=== PATIENT | male | born 1960 | race Hispanic/Latino ===

== ENCOUNTER 2017-07-26 11:26 | Inpatient (IN) | payer OTHER ==
[~2017-07-26] VITALS: Ht 165.1 cm; Wt 86.2 kg
--- NOTE | 2017-07-26 12:23 | Diagnostic Imaging Report ---
PROCEDURE:X-RAY RIGHT FOOT, COMPLETE COMPARISON:None. INDICATIONS:5TH DIGIT INFECTION FINDINGS: Normal mineralization. No acute displaced fracture or dislocation. Mild cortex irregularity in the medial distal aspect of the distal phalanx of the fifth toe. Rest of the bony structures are no cortical erosion or destruction. No lytic or blastic lesion. Soft tissue swelling is dorsal aspect of the foot, as well as the fifth toe CONCLUSION: 1. Mild cortex irregularity in the medial distal aspect of the distal phalanx of the fifth toe worrisome for osteomyelitis in the setting of infection. Belrtan Mosqueda M.D. Dictated by: Beltran Mosqueda M.D. on 07/26/2017 at 12:22 Electronically approved by: Beltran Mosqueda M.D. on 07/26/2017 at 12:22
[2017-07-26 12:28] LABS: BASOPHILS # (AUTO) 0.1 (0.0-0.1); BASOPHILS % 0.3 % (0.0-1.0); EOSINOPHILS % 0.1 % (0.0-6.0); HEMATOCRIT 38.7 % (38.2-49.6); HEMOGLOBIN 13.4 g/dL (14.0-18.0); LYMPHOCYTES # (AUTO) 1.5 (1.0-3.2); LYMPHOCYTES % 9.2 % (18.0-39.1); MEAN CORPUSCULAR HEMOGLOBIN 29.2 pg (28-32); MEAN CORPUSCULAR HGB CONC 34.6 g/dL (31-35); MEAN CORPUSCULAR VOLUME 84.3 fL (81-99); MONOCYTES % 6.1 % (4.4-11.3); NEUTROPHILS # (AUTO) 13.2 (2.1-6.9); NEUTROPHILS % 83.9 % (38.7-80.0); PLATELET COUNT 247 x10e3/uL (140-360); RED BLOOD COUNT 4.59 x10e6/uL (4.3-5.7); RED CELL DISTRIBUTION WIDTH 11.9 % (11.7-14.4)
[2017-07-26 12:44] LABS: INR 1.1; PARTIAL THROMBOPLASTIN TIME 30.5 seconds (23.8-35.5); PROTHROMBIN TIME 13.4 seconds (11.9-14.5)
[2017-07-26 12:50] LABS: ALANINE AMINOTRANSFERASE 22 IU/L (0-55); ALBUMIN 3.7 g/dL (3.5-5.0); ALBUMIN/GLOBULIN RATIO 0.8 (0.8-2.0); ALKALINE PHOSPHATASE 108 IU/L (40-150); ANION GAP 17.3 mmol/L (8-16); BLOOD UREA NITROGEN 17 mg/dL (7-26); BUN/CREATININE RATIO 17 (6-25); CALCIUM 9.6 mg/dL (8.4-10.2); CARBON DIOXIDE 28 mmol/L (22-29); CHLORIDE 97 mmol/L (98-107); CREATININE, SERUM 0.98 mg/dL (0.72-1.25); EST GLOMERULAR FILTRATION RATE > 60 ML/MIN (60-); GLUCOSE 197 mg/dL (74-118); POTASSIUM 4.3 mmol/L (3.5-5.1); SODIUM 138 mmol/L (136-145)
[2017-07-26] MEDS ORDERED: VANCOMYCIN 1GM/NS 250 ML 250 ML IV ONE (13:15)
[2017-07-26 13:22] LABS: CHOL/HDL RATIO 2.8 (3.9-4.7)
[2017-07-26] MEDS ORDERED: SODIUM CHLORIDE FLUSH 10 ML SYR INJ PRN (14:00)
[2017-07-26] MEDS ORDERED: ONDANSETRON HCL INJ 2 MG/ML VIAL IV PRN (14:00)
--- OUTSIDE RECORDS SUMMARY | 2017-07-26 14:45 | XMS REPORT ---
Author Author [facility] Address Unknown Phone Unavailable Care Team Providers Care Test Borer Name Role Phone JABIER HORNE Unavailable Unavailable Problems This patient has no known problems. Allergies, Adverse Reactions, Alerts This patient has no known allergies or adverse reactions. Medications This patient has no known medications. Results Test Description Test Time Test Comments Text Results Atomic Results Result Comments FOOT RIGHT COMPLETE [place] [id number] Patient Name: COLLEEN STARR MR #: [id number] : 1960 Age/Sex: 57/M Req # : [id number] Adm Physician: Ordered by: JABIER HORNE MD Report #: [id number] Location: ER Room/Bed: Procedure: [id number] DX/FOOT RIGHT COMPLETE Exam Date: 07/26/17 Exam Time: 1200 REPORT STATUS: Signed PROCEDURE: X-RAY RIGHT FOOT, COMPLETE COMPARISON: None. INDICATIONS: 5TH DIGIT INFECTION FINDINGS: Normal mineralization. No acute displaced fracture or dislocation. Mild cortex irregularity in the medial distal aspect of the distal phalanx of the fifth toe. Rest of the bony structures are no cortical erosion or destruction. No lytic or blastic lesion. Soft tissue swelling is dorsal aspect of the foot, as well as the fifth toe CONCLUSION: 1. Mild cortex irregularity in the medial distal aspect of the distal phalanx of the fifth toe worrisome for osteomyelitis in the setting of infection. Janessa Mosqueda M.D. Dictated by: Janessa Mosqueda M.D. on 07/26/2017 at 12:22 Electronically approved by: Janessa Mosqueda M.D. on 07/26/2017 at 12:22 Dictated By: JANESSA MOSQUEDA MD [id number] Transcribed By: TIFFANIE on 07/26/17 1222 COPY TO: JABIER HORNE MD
[2017-07-26] MEDS ORDERED: MORPHINE SULFATE 2 MG/ML SYR IV PRN (15:00)
[2017-07-26 16:26] VITALS: BP 156/74
[2017-07-26] MEDS ORDERED: SODIUM CHLORIDE 0.9% 250ML 250 ML ONE (16:52)
[2017-07-26] MEDS ORDERED: DEXTROSE 50% SYRINGE 50 ML IV PRN (17:00)
[2017-07-26] MEDS: MEROPENEM 500MG 500 MG in SODIUM CHLORIDE 0.9% 50ML 50 ML IV SCH (17:06)
[2017-07-26] MEDS: VANCOMYCIN 1GM/NS 250 ML 250 ML IV SCH (17:06)
--- NOTE | 2017-07-26 17:09 | Consultation ---
DATE OF CONSULTATION: July 26, 2017 REASON FOR CONSULTATION: Infection of his right foot. HISTORY OF PRESENT ILLNESS: This patient is a 57-year-old male with history of diabetes mellitus. He was having a problem with his foot for more than a month. He comes in with redness and swelling of his foot. The patient came to the emergency room where he was admitted. The patient denies any history of trauma, but he does have history of diabetes, hypertension. PAST SURGICAL HISTORY: He denies. ALLERGIES: NKA. SOCIAL HISTORY: Does not smoke, no drug abuse or alcohol abuse. FAMILY HISTORY: Diabetes mellitus. LABORATORY DATA: White count 15.7, hemoglobin 13.4, sodium 130, potassium 4.3, creatinine 0.98. PHYSICAL EXAMINATION: GENERAL: He is currently alert and oriented and does not seem to be in acute distress. VITALS: Stable, currently afebrile. HEENT: Not icteric. NECK: Supple. CHEST: Clear. COR: No murmur. ABDOMEN: Soft. Obese, no tenderness, no hepatosplenomegaly. EXTREMITIES: On his right foot, there is erythema and edema. IMPRESSION AND PLAN: Infection of the foot. There are ischemic changes of the 5th toe, probably early necrosis. Will need probably amputation. Concern about osteomyelitis. Peripheral vascular disease. Will put him on vancomycin 1 gram IV piggyback q.12 hours. Will also put him on meropenem 500 q.8. The patient is allergic to penicillin. Podiatry consultation. Obtain a sed rate and C-reactive protein. Will follow with you. Job#: [id number]
--- NOTE | 2017-07-26 17:28 | History and Physical ---
CHIEF COMPLAINT: He presented to the emergency room today when he noted that his right 5th toe was swelling and turning dark. HISTORY OF PRESENT ILLNESS: Mr. 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 The patient tells me in a rapid speech that his old shoes were fitting kind of tightly. He did not notice any injury, but when he noted that his toe was becoming red, he "took the old shoes and threw them in the trash". PAST MEDICAL HISTORY: Significant for type 2 adult onset diabetes. He reports that he takes medications and checks blood sugars. He tells me his blood sugars have been higher since his mother a couple of weeks ago. He cannot tell me the names of his medications. Denies any previous surgeries or hospitalizations. PERSONAL/SOCIAL HISTORY: Does not smoke or drink. REVIEW OF SYSTEMS: Generally negative. He reports he is active and works hard. PHYSICAL EXAMINATION: GENERAL: Shows a pleasant, man who is comfortable. VITAL SIGNS: Temperature 99 degrees, blood pressure 135/77. Pulse 75. HEENT: Unremarkable. NECK: No jugular venous distention. No bruits. CARDIOVASCULAR: Heart sounds S1 and S2 are equal. No murmur. LUNGS: Clear. ABDOMEN: Protuberant. Normal bowel sounds. EXTREMITIES: Have no cyanosis, clubbing or edema. The right 5th toe is swollen, reddish and dusky in coloration. LABORATORY: Studies show white count 15.7, hemoglobin 13.4. Current glucose 197. BUN and creatinine normal. His hemoglobin A1C is 12.4. Lipid profile shows cholesterol 172, HDL 61, LDL 94. X-ray of the foot suggests possibility of osteomyelitis in the 5th toe. ASSESSMENT: 1. Cellulitis and diabetic foot with possible osteomyelitis. 2. Uncontrolled diabetes. PLAN: He is started on broad-spectrum antibiotic coverage and will check arterial Doppler scan of the legs. Will provide sliding scale insulin. Ask for infectious disease and endocrine consultations. Further management based on clinical course. Job#: [id number] GH cc:KIYA CHRISTINA MD cc:NANCY GUZMAN MD cc:JAMIE PERSAUD MD
[2017-07-26 18:25] VITALS: BP 156/74
[2017-07-26 20:30] VITALS: BP 129/72
--- NOTE | 2017-07-26 20:37 | Diagnostic Imaging Report ---
A single frontal view of the chest. HISTORY: Diabetes, cellulitis COMPARISON: None available. DISCUSSION: Portable technique, limits sensitivity of the exam. Metallic density projects over the mid thorax. Tubes/Lines: None Lungs and pleura: The lungs appear well inflated. No evidence of a consolidative pneumonia or pulmonary alveolar edema. No definite pleural effusion or pneumothorax is identified. Heart and mediastinum: The cardiomediastinal silhouette appears unremarkable. Bones: No acute osseous lesion is identified, given this limited exam. IMPRESSION: No acute radiographic abnormality. Signed by: Dr. Bernard Osorio D.O., M.M.M. on 07/26/2017 8:33 PM
[2017-07-26] MEDS: INSULIN REGULAR, HUMAN 100 UNIT/1 ML 3ML VIAL SQ SCH (22:45)
[2017-07-26] MEDS ORDERED: OMEPRAZOLE40 MG (23:38)
[2017-07-26] MEDS ORDERED: VASOTEC5 MG PO (23:38)
[2017-07-26] MEDS ORDERED: DOCUSATE SODIU100 MG PO (23:38)
[2017-07-26] MEDS ORDERED: METFORMIN HCL500 MG PO (23:38)
[2017-07-26] MEDS ORDERED: PIOGLITAZONE HC45 MG PO (23:38)
[2017-07-26] MEDS ORDERED: LOVASTATIN20 MG PO (23:38)
[2017-07-26] MEDS ORDERED: FARXIGA (23:38)
[2017-07-27] VITALS (7 sets, daily range): BP systolic 127–152; BP diastolic 67–79
[2017-07-27] MEDS: MEROPENEM 500MG 500 MG in SODIUM CHLORIDE 0.9% 50ML 50 ML IV SCH ×4 (00:10→18:15)
[2017-07-27 07:07] LABS: BASOPHILS % 0.3 % (0.0-1.0); EOSINOPHILS % 0.2 % (0.0-6.0); HEMATOCRIT 36.2 % (38.2-49.6); HEMOGLOBIN 12.4 g/dL (14.0-18.0); LYMPHOCYTES # (AUTO) 1.3 (1.0-3.2); LYMPHOCYTES % 9.9 % (18.0-39.1); MEAN CORPUSCULAR HEMOGLOBIN 29.7 pg (28-32); MEAN CORPUSCULAR HGB CONC 34.3 g/dL (31-35); MEAN CORPUSCULAR VOLUME 86.8 fL (81-99); MONOCYTES # (AUTO) 0.8 (0.2-0.8); MONOCYTES % 5.9 % (4.4-11.3); NEUTROPHILS # (AUTO) 11.2 (2.1-6.9); NEUTROPHILS % 83.1 % (38.7-80.0); PLATELET COUNT 251 x10e3/uL (140-360); RED BLOOD COUNT 4.17 x10e6/uL (4.3-5.7); RED CELL DISTRIBUTION WIDTH 11.7 % (11.7-14.4)
[2017-07-27 07:23] LABS: BLOOD UREA NITROGEN 16 mg/dL (7-26); BUN/CREATININE RATIO 19 (6-25); CALCIUM 8.9 mg/dL (8.4-10.2); CARBON DIOXIDE 23 mmol/L (22-29); CHLORIDE 98 mmol/L (98-107); CREATININE, SERUM 0.85 mg/dL (0.72-1.25); EST GLOMERULAR FILTRATION RATE > 60 ML/MIN (60-); GLUCOSE 141 mg/dL (74-118); SODIUM 135 mmol/L (136-145)
[2017-07-27] MEDS: INSULIN REGULAR, HUMAN 100 UNIT/1 ML 3ML VIAL SQ SCH ×4 (07:25→21:00)
--- NOTE | 2017-07-27 10:30 | Diagnostic Imaging Report ---
PROCEDURE: A single AP view of the chest. COMPARISON: None. INDICATIONS: PICC LINE PLACEMENT FINDINGS: Lines/tubes: Right peripherally inserted central venous catheter with tip projecting over the expected region of the superior vena cava. Lungs: The lungs are well inflated and clear. There is no evidence of pneumonia or pulmonary edema. Pleura: There is no pleural effusion or pneumothorax. Heart and mediastinum: The heart and the mediastinum are unremarkable. Bones: No acute bony abnormality. IMPRESSION: No acute radiographic abnormality. Dictated by: Dwight Wallace M.D. on 07/27/2017 at 10:30 Electronically approved by: Dwight Wallace M.D. on 07/27/2017 at 10:30
[2017-07-27 14:18] LABS: FREE T4 (FREE THYROXINE) 1.21 ng/dL (0.9-1.8); THYROID STIMULATING HORMONE 1.202 uIU/mL (0.350-4.940)
--- NOTE | 2017-07-27 14:56 | Consultation ---
DATE OF CONSULTATION: July 27, 2017 ENDOCRINE CONSULTATION This is a patient of Dr. Wellington. Thank you very much for referring this patient. HISTORY OF PRESENT ILLNESS: This is a 57-year-old gentleman who is referred to me for evaluation of uncontrolled diabetes mellitus. Patient reportedly is a known diabetic for almost 3 years. Most of the history is available from the patient's relatives. Patient is Citizen Of The [place]-speaking only. He is a known diabetic for almost 3 years and is under the care of Dr. Parrish. He has been started on several hypoglycemics including glyburide and metformin. He was also on Actos in the past and recently has been started on the Farxiga. Patient came to the hospital with the history of cellulitis of the right foot with impending gangrene and possible osteomyelitis of the 5th toe on the right side. He also has history of hypertension and is on several other medications at home. During the hospital stay, his blood sugars were significantly elevated at 258, and his hemoglobin A1c is 12.4. PHYSICAL EXAMINATION: GENERAL: Today the patient is alert, awake, a little bit apprehensive. VITAL SIGNS: His heart rate is around 78. Blood pressure 148/86 mmHg. HEENT: Examination essentially unremarkable. Thyroid is palpable. Clinically he is near euthyroid. CHEST: Bilateral vesicular breathing. He has mild bronchospasm. CARDIAC: Both 1st and 2nd heart sounds. There is no 3rd or 4th heart sound. Ejection sound grade 2/6. EXTREMITIES: Patient has redness and swelling of the right foot with a blister and discoloration of the 5th toe on the right side. CLINICAL IMPRESSION: 1. Diabetes mellitus type 2, uncontrolled with complications. 2. Cellulitis of the right foot with possible osteomyelitis of the 5th toe. The plan at this time is to do the labs and also put him on the combination of the Levemir and the Humalog insulin. Will just hold his Farxiga and other oral hypoglycemics for now. Thanks for referring this patient. I will be following this patient with you. Job#: [id number] EV MTDAvelina
[2017-07-27] MEDS: VANCOMYCIN 1GM/NS 250 ML 250 ML IV SCH (16:50)
[2017-07-28] VITALS (7 sets, daily range): BP systolic 136–184; BP diastolic 68–88
[2017-07-28] MEDS: MEROPENEM 500MG 500 MG in SODIUM CHLORIDE 0.9% 50ML 50 ML IV SCH ×4 (00:30→17:40)
[2017-07-28] MEDS: INSULIN REGULAR, HUMAN 100 UNIT/1 ML 3ML VIAL SQ SCH ×4 (07:20→21:30)
[2017-07-28] MEDS ORDERED: INSULIN DETEMIR 100 UNIT/ML PEN SQ SCH (09:00)
[2017-07-28] MEDS: ENALAPRIL MALEATE 5 MG TAB PO SCH (12:30)
[2017-07-28] MEDS: INSULIN LISPRO 100 UNIT/1 ML 3ML VIAL SQ SCH (16:15)
[2017-07-28] MEDS: VANCOMYCIN 1GM/NS 250 ML 250 ML IV SCH (16:45)
[2017-07-28] MEDS ORDERED: PROMETHAZINE HCL 25 MG TAB PO PRN (23:30)
[2017-07-29] VITALS (8 sets, daily range): BP systolic 115–151; BP diastolic 66–80
[2017-07-29] MEDS: MEROPENEM 500MG 500 MG in SODIUM CHLORIDE 0.9% 50ML 50 ML IV SCH ×4 (00:10→17:35)
[2017-07-29] MEDS: ACETAMINOPHEN 325 MG TAB PO PRN ×2 (00:10→22:02)
[2017-07-29] MEDS: INSULIN LISPRO 100 UNIT/1 ML 3ML VIAL SQ SCH ×3 (07:30→16:30)
[2017-07-29] MEDS: INSULIN REGULAR, HUMAN 100 UNIT/1 ML 3ML VIAL SQ SCH ×4 (07:30→22:00)
[2017-07-29] MEDS ORDERED: INSULIN DETEMIR 100 UNIT/ML PEN SQ SCH (09:00)
[2017-07-29] MEDS: ENALAPRIL MALEATE 5 MG TAB PO SCH (09:10)
[2017-07-29] MEDS: VANCOMYCIN HCL 1.25 GM in SODIUM CHLORIDE 0.9% 250ML 300 ML IV SCH ×2 (11:05→22:01)
--- NOTE | 2017-07-29 15:04 | Consultation ---
DATE OF CONSULTATION: July 29, 2017 PODIATRY CONSULT CHIEF COMPLAINT AND HISTORY OF CHIEF COMPLAINT: Mr. Pereira is a most pleasant 57-year-old male who was admitted to the hospital with an infected right foot. He speaks Togolese only, and the history was obtained from the chart and from the nurse who served as a site safety coordinator. Patient states that approximately a month ago he wore a tight shoe and noticed a blister on his right 5th toe. The blister proceeded to infection and worsening until he admitted to the hospital here several days ago. He has since been on IV antibiotics and medical management for diabetes and infection in the right foot. PREVIOUS MEDICAL HISTORY: Does indeed include the diabetes as well as hypertension. The patient denies any form of trauma to his foot other than that which was described by the tight shoe. PREVIOUS SURGICAL HISTORY: He denies surgery. ALLERGIES: HE DENIES ALLERGIES. SOCIAL HISTORY: The patient does not smoke or use alcohol or drugs. FAMILY HISTORY: Includes diabetes. LABS ON ADMISSION: Include an elevated white count at 15.7. PHYSICAL EVALUATION GENERAL: Patient states in general he does not have pain other than occasionally at night. LOWER EXTREMITY VASCULAR STATUS: The patient has nonpalpable pedal pulses secondary to edema on the right. They are palpable on the left. Capillary refill is within normal limits on the hallux and 2nd digit on the right foot. NEUROLOGICALLY: The patient has a loss of protective sensation as evidenced by [place] monofilament testing. DERMATOLOGICALLY: There is an intense erythema with cellulitis to the entire dorsal lateral aspect of the right foot including the 4th and 5th digits. This extends to an area just proximal to the right ankle. There is an ulceration interdigitally between the 4th and 5th digits with foul-smelling exudate and a bulbous discoloration and darkening of the right 5th digit. MUSCULOSKELETAL: Shows a rectus foot with probable osteomyelitis to the 5th digit. No other imaging has been performed at this point. These results and recommended therapeutic plan which included amputation of the 5th digit and bone debridement were discussed with the patient in detail. Through the field auto appraiser, the patient stated that he would prefer to avoid amputation and loss of the digit if at all possible. MRI was ordered in order to determine the full extent of the infection and if the osteomyelitis already extends past the metatarsophalangeal joint of the right or possibly involves the 4th digit. Pending the outcome of the MRI, further recommendations will be made. In the interim, will continue with IV antibiotics and local wound care. A cleansing of the foot with an application of Betadine wet-to-dry will help to dry the area and control the foul odor. I will be leaving to go out of town after today for 1 week; therefore, will sign this patient out to Dr. Trina Styles. Further determination and discussion with regards to the appropriate procedure will be made by Dr. Styles as deemed appropriate. Thank you very much, Dr. Wellington, for asking me to see this most pleasant patient and participate in his care. Job#: [id number] DARBY
--- NOTE | 2017-07-29 16:49 | Diagnostic Imaging Report ---
TECHNIQUE: Magnetic resonance imaging of the RIGHT foot (forefoot) was performed WITHOUT injected contrast. HISTORY: Diabetic foot, ulcer fifth right toe, red, swollen, cellulitis COMPARISON: Radiographs of the right foot July 26, 2017 DISCUSSION: Bone: Subtle erosive changes, edema, decreased fatty marrow and probable areas of sclerosis involving the phalanges of the fifth digit. Most notably involving the medial aspect of the distal phalanx, middle phalanx, and lateral aspect of the head of the proximal phalanx. Incidentally, linear oriented edema within the cuboid bone, with subtle corresponding linear hypointensity. Joints: Nonspecific effusions of the interphalangeal joints. A trace nonspecific effusion of the fifth metatarsophalangeal joint. Soft Tissues: Soft tissue defect of the fifth toe. Regional confluent fluid signal intensity and punctate signal voids likely reflecting small air foci. Moderate diffuse soft tissue edema. IMPRESSION: 1. Osteomyelitis involving the fifth distal phalanx, middle phalanx, and distal aspect of the proximal phalanx. Acute on chronic osteomyelitis is a consideration. Associated fifth digit interphalangeal septic arthropathy is probable. 2. Prominent regional cellulitis. 3. Stress-related changes versus evolving insufficiency fracture of the cuboid bone. Signed by: Dr. Bernard Osorio D.O., M.M.M. on 07/29/2017 4:46 PM
[2017-07-29] MEDS ORDERED: SODIUM CHLORIDE 0.9% 250ML 250 ML ONE (23:42)
[2017-07-30] VITALS (9 sets, daily range): BP systolic 115–149; BP diastolic 57–81
[2017-07-30] MEDS: ZOLPIDEM TARTRATE 5 MG TAB PO PRN ×2 (00:20→21:28)
[2017-07-30] MEDS: MEROPENEM 500MG 500 MG in SODIUM CHLORIDE 0.9% 50ML 50 ML IV SCH ×4 (00:40→17:23)
[2017-07-30] MEDS: INSULIN LISPRO 100 UNIT/1 ML 3ML VIAL SQ SCH ×3 (07:30→16:30)
[2017-07-30] MEDS: INSULIN REGULAR, HUMAN 100 UNIT/1 ML 3ML VIAL SQ SCH ×4 (07:30→21:28)
[2017-07-30] MEDS: ENALAPRIL MALEATE 5 MG TAB PO SCH (08:01)
[2017-07-30] MEDS: ACETAMINOPHEN 325 MG TAB PO PRN ×2 (08:01→17:58)
[2017-07-30 08:37] LABS: BASOPHILS # (AUTO) 0.1 (0.0-0.1); BASOPHILS % 0.6 % (0.0-1.0); EOSINOPHILS # (AUTO) 0.1 (0.0-0.4); EOSINOPHILS % 1.2 % (0.0-6.0); HEMATOCRIT 36.7 % (38.2-49.6); HEMOGLOBIN 12.3 g/dL (14.0-18.0); LYMPHOCYTES # (AUTO) 1.9 (1.0-3.2); LYMPHOCYTES % 18.2 % (18.0-39.1); MEAN CORPUSCULAR HEMOGLOBIN 29.2 pg (28-32); MEAN CORPUSCULAR HGB CONC 33.5 g/dL (31-35); MEAN CORPUSCULAR VOLUME 87.2 fL (81-99); MONOCYTES # (AUTO) 0.7 (0.2-0.8); MONOCYTES % 6.6 % (4.4-11.3); NEUTROPHILS # (AUTO) 7.7 (2.1-6.9); NEUTROPHILS % 72.8 % (38.7-80.0); PLATELET COUNT 242 x10e3/uL (140-360); RED BLOOD COUNT 4.21 x10e6/uL (4.3-5.7); RED CELL DISTRIBUTION WIDTH 11.7 % (11.7-14.4)
[2017-07-30 08:51] LABS: ANION GAP 14.8 mmol/L (8-16); BLOOD UREA NITROGEN 12 mg/dL (7-26); BUN/CREATININE RATIO 16 (6-25); CARBON DIOXIDE 23 mmol/L (22-29); CHLORIDE 100 mmol/L (98-107); CREATININE, SERUM 0.77 mg/dL (0.72-1.25); EST GLOMERULAR FILTRATION RATE > 60 ML/MIN (60-); GLUCOSE 221 mg/dL (74-118); POTASSIUM 3.8 mmol/L (3.5-5.1); SODIUM 134 mmol/L (136-145)
[2017-07-30] MEDS ORDERED: INSULIN DETEMIR 100 UNIT/ML PEN SQ SCH (09:00)
[2017-07-30] MEDS: VANCOMYCIN HCL 1.25 GM in SODIUM CHLORIDE 0.9% 250ML 300 ML IV SCH ×2 (10:43→21:28)
[2017-07-31] VITALS (9 sets, daily range): BP systolic 121–145; BP diastolic 64–80
[2017-07-31] MEDS: MEROPENEM 500MG 500 MG in SODIUM CHLORIDE 0.9% 50ML 50 ML IV SCH ×5 (06:00→17:14)
[2017-07-31] MEDS: INSULIN REGULAR, HUMAN 100 UNIT/1 ML 3ML VIAL SQ SCH ×4 (07:30→20:32)
[2017-07-31] MEDS: INSULIN LISPRO 100 UNIT/1 ML 3ML VIAL SQ SCH ×3 (07:30→16:30)
[2017-07-31] MEDS: ENALAPRIL MALEATE 5 MG TAB PO SCH (08:35)
[2017-07-31] MEDS ORDERED: INSULIN DETEMIR 100 UNIT/ML PEN SQ SCH (09:00)
[2017-07-31] MEDS: VANCOMYCIN HCL 1.25 GM in SODIUM CHLORIDE 0.9% 250ML 300 ML IV SCH ×2 (10:24→21:29)
[2017-07-31] MEDS: ACETAMINOPHEN 325 MG TAB PO PRN (10:35)
--- NOTE | 2017-07-31 14:28 | Progress Note ---
DATE: July 31, 2017 Patient was seen at bedside. He is in good spirits. Family was also at bedside. Denies any nausea, vomiting, fever or chills. OBJECTIVE: There is an abscess with erythema and edema extending to around the ankle joint. It begins at the intermetatarsal space on the 4th. The 5th digit is gangrenous. There is purulence. There is malodor. There is no streaking erythema and no ascending lymphangitis. It ends right after the mid foot right to the subtalar joint. Pedal pulses are palpable. Capillary refill intact but still delayed. Skin is tense, dry, and atrophic. Intrinsic minus type of foot. Muscle mass symmetrical. MRI is positive for osteomyelitis. The white blood count is trending down. ASSESSMENT 1. Diabetic foot ulcer, grade 3. 2. Osteomyelitis, 5th metatarsal digit and proximal phalanx on the 4th. 3. Neuropathy. PLAN: At this point, I discussed with the patient the importance of controlling his blood sugar. He does see his PCP as outpatient, but he says was not controlling his blood sugars well. He developed this ulcer 2 weeks ago. He started IV antibiotic. It is beginning to respond and is trending down. At this point, he is going to need incision and drainage with debridement of the area. I am going to schedule him for possible Tuesday time broker. He is aware that towards the end of this week or the beginning of next week, he will need more definitive surgery. I suspect he is probably going to need an amputation of the 5th and possibly the 4th, and he is aware of this. First, the incision and drainage. I will wait for everything to demarcate. Then the more definitive surgery. I will continue to follow. He will be n.p.o. after midnight on Tuesday night. He will be vice president consulting services to OR on Tuesday. Job#: [id number]
[2017-08-01] VITALS: BP 122/74
[2017-08-01 04:00] VITALS: BP 129/76
[2017-08-01] MEDS: MEROPENEM 500MG 500 MG in SODIUM CHLORIDE 0.9% 50ML 50 ML IV SCH ×4 (06:04→12:48)
[2017-08-01] MEDS: INSULIN LISPRO 100 UNIT/1 ML 3ML VIAL SQ SCH ×3 (07:30→16:30)
[2017-08-01] MEDS: INSULIN REGULAR, HUMAN 100 UNIT/1 ML 3ML VIAL SQ SCH ×4 (07:30→20:47)
[2017-08-01 07:53] VITALS: BP 109/78
[2017-08-01] MEDS: ENALAPRIL MALEATE 5 MG TAB PO SCH (08:52)
[2017-08-01] MEDS: INSULIN DETEMIR 100 UNIT/ML PEN SQ SCH (08:53)
[2017-08-01] MEDS: VANCOMYCIN HCL 1.25 GM in SODIUM CHLORIDE 0.9% 250ML 300 ML IV SCH ×2 (11:00→22:21)
[2017-08-01 16:10] VITALS: BP 140/98
[2017-08-01] MEDS: MEROPENEM 500 MG VIAL IV SCH (17:20)
[2017-08-01 20:00] VITALS: BP 140/76
[2017-08-02] VITALS (8 sets, daily range): BP systolic 115–156; BP diastolic 56–89
[2017-08-02] MEDS: MEROPENEM 500 MG VIAL IV SCH ×5 (00:15→23:45)
[2017-08-02] MEDS ORDERED: VANCOMYCIN HCL 1 GM VIAL ONE (07:13)
[2017-08-02] MEDS ORDERED: BUPIVACAINE HCL 0.5% INJ 30 ML VIAL INJ ONE (07:13)
[2017-08-02] MEDS ORDERED: BACITRACIN 50,000 UNIT VIAL ONE (07:14)
[2017-08-02] MEDS ORDERED: FENTANYL CITRATE/PF 100MCG/2 ML INJ ONE ×2 (09:00→17:49)
--- NOTE | 2017-08-02 09:10 | Operative Report ---
DATE OF PROCEDURE: August 02, 2017 PREOPERATIVE DIAGNOSIS: Abscess with osteomyelitis on the right 5th digit and 4th intermetatarsal space. POSTOPERATIVE DIAGNOSIS: Abscess with osteomyelitis on the right 5th digit and 4th intermetatarsal space. PROCEDURES 1. Debridement of the abscess down to the bone. 2. Debridement of nonviable bone of the 5th. 3. Application of antibiotic bone beads. INJECTABLES: None. TOURNIQUET: None. COMPLICATIONS: None. PATHOLOGY: Culture and sensitivity sent for pathology. ANESTHESIA: General anesthetic. PROCEDURE IN DETAIL: Under mild sedation, the patient was brought to the operating room and placed on the operating table in the supine position. Following IV sedation, anesthesia was obtained with a general anesthetic. At this point, the right foot was scrubbed, prepped and draped in the usual aseptic manner. It was then lowered to the table. Attention was directed to the dorsal aspect of the right foot at the 4th intermetatarsal space where the abscess was and the ulcer. An incision was made down to the level of the bone. All nonviable tissue was debrided with a 15 blade and bone rongeur down to clean, viable granular tissue. Culture and sensitivity was taken of the abscess. It was then sent for pathology. The area was then flushed with a pulse roofing plant supervisor. At this point, the 5th digit was debrided down to the bone. At this point, it was noted that all the bone was osteomyelitic with mild odor, soft, nonviable. All of this was removed. The 5th digit was articulated down into the MPJ. After everything was irrigated with copious amount of irrigation with Bacitracin, bone beads were inserted into the area. Retention sutures were used with 4-0 nylon. A dressing was applied consisting of Betadine wet-to-dry, 4 x 4's, Kerlix, and an Kevin bandage. The patient tolerated the procedure and anesthesia well without complications. Was transported to the recovery room with vital signs stable and vascular status intact. The patient will be readmitted back into the hospital. He is going to have a more definitive surgery late this week or early next week. At this point, all the nonviable tissue was removed. I am going to wait for all the tissue to demarcate. He is aware of this. I will continue to follow him. He is to be nonweightbearing to that extremity at all times. Job#: [id number] RI
[2017-08-02] MEDS: VANCOMYCIN HCL 1.25 GM in SODIUM CHLORIDE 0.9% 250ML 300 ML IV SCH ×2 (10:00→21:31)
[2017-08-02] MEDS: ENALAPRIL MALEATE 5 MG TAB PO SCH (10:46)
[2017-08-02] MEDS: INSULIN DETEMIR 100 UNIT/ML PEN SQ SCH (10:51)
[2017-08-02] MEDS: INSULIN REGULAR, HUMAN 100 UNIT/1 ML 3ML VIAL SQ SCH ×4 (10:51→20:22)
[2017-08-02] MEDS: INSULIN LISPRO 100 UNIT/1 ML 3ML VIAL SQ SCH ×3 (10:53→16:30)
[2017-08-02] MEDS: ACETAMINOPHEN 325 MG TAB PO PRN (14:17)
[2017-08-02] MEDS: HYDROCODONE/APAP 7.5MG-325MG 1 EA TAB PO PRN ×2 (18:10→20:22)
[2017-08-02] MEDS ORDERED: LIDOCAINE HCL 2% LOCAL INJ 5 ML SDV VIAL INJ ONE (18:22)
[2017-08-02] MEDS ORDERED: ONDANSETRON HCL INJ 2 MG/ML VIAL ONE (18:22)
[2017-08-02] MEDS ORDERED: PROPOFOL IV EMULSION 10 MG/ML 20 ML VIAL ONE (18:22)
[2017-08-02] MEDS ORDERED: SEVOFLURANE INHAL SOLN 250 ML PEN BTL ONE (18:22)
[2017-08-02] MEDS: ZOLPIDEM TARTRATE 5 MG TAB PO PRN (23:45)
[2017-08-03] VITALS: BP 132/68
[2017-08-03] MEDS: HYDROCODONE/APAP 7.5MG-325MG 1 EA TAB PO PRN ×3 (00:23→15:57)
[2017-08-03 04:00] VITALS: BP 121/70
[2017-08-03] MEDS: MEROPENEM 500 MG VIAL IV SCH ×2 (05:32→12:51)
[2017-08-03 07:48] VITALS: BP 122/77
[2017-08-03] MEDS: ENALAPRIL MALEATE 5 MG TAB PO SCH (09:40)
[2017-08-03] MEDS: INSULIN DETEMIR 100 UNIT/ML PEN SQ SCH (09:42)
[2017-08-03] MEDS: INSULIN LISPRO 100 UNIT/1 ML 3ML VIAL SQ SCH ×2 (09:43→12:59)
[2017-08-03] MEDS: INSULIN REGULAR, HUMAN 100 UNIT/1 ML 3ML VIAL SQ SCH ×2 (09:43→11:30)
[2017-08-03 12:44] VITALS: BP 114/76
[2017-08-03] MEDS: VANCOMYCIN HCL 1.25 GM in SODIUM CHLORIDE 0.9% 250ML 300 ML IV SCH (12:56)
--- NOTE | 2017-08-03 13:51 | Discharge Summary ---
Mr. Pereira is a pleasant, 57-year-old man who presented to the emergency room with a complaint of pain and discoloration of his right fifth toe. HOSPITAL COURSE: The patient was found to have a very high hemoglobin A1c about 12.4. Initial inspection suggested cellulitis and possible osteomyelitis. Dr. Valle was consulted, and antibiotic treatments were begun by Dr. Myers. Arterial Doppler scan of the legs suggested adequate to normal circulation. For diabetic management, doctor Gloria was consulted, who began a diabetic regimen with insulin, stopping his oral medications. MRI suggested osteomyelitis. On the , the patient had surgery with amputation of the fifth digit and associated tissues. Today, the patient's bandage is clean and dry. He is having very little, if any, pain. He is discharged to home with his PICC line in place to continue IV antibiotics from Dr. Myers's guidance and will have insulin regimen organized by Dr. Castro. He will follow up with podiatry in one week, Dr. Myers's office for antibiotics, Dr. Castro for long-standing, long-term diabetic management and with Dr. Parrish for general care. DISCHARGE DIAGNOSES 1. Cellulitis. 2. Osteomyelitis. 3. Diabetic foot ulcer. 4. Uncontrolled diabetes. 5. Hypertension. 6. Successful partial amputation of right foot. TOD ALCOCER MD Job#: [id number] cc:MD NANCY MOHAMUD MD SCOTT MCKINNEY, DPM KULDIP KAUL, MD
[2017-08-03 16:13] VITALS: BP 121/71
== END 2017-08-03 16:46 | disposition home or self-care (01) | DRG 629 ==
LOC: ER 11:26 → EDBEDREQ 14:31 → ERHOLD 14:42 → MED/SURG3 14:44
PROVIDERS: ADMIT Internal Medicine Cardiovascular Disease; ATTEND Internal Medicine Cardiovascular Disease
PROC: 02HV33Z Insertion of Infusion Device into Superior Vena Cava, Percutaneous Approach (ICD-10-PCS; 2017-07-27)
PROC: 3E0V329 Introduction of Other Anti-infective into Bones, Percutaneous Approach (ICD-10-PCS; 2017-08-02)
PROC: 0QBN0ZZ Excision of Right Metatarsal, Open Approach (ICD-10-PCS; principal; 2017-08-02 08:00)
DX: E11.69 Type 2 diabetes mellitus with other specified complication (principal); L03.115 Cellulitis of right lower limb; M86.8X7 Other osteomyelitis, ankle and foot; I96 Gangrene, not elsewhere classified; E11.621 Type 2 diabetes mellitus with foot ulcer; E11.42 Type 2 diabetes mellitus with diabetic polyneuropathy; E11.52 Type 2 diabetes mellitus with diabetic peripheral angiopathy with gangrene; E11.65 Type 2 diabetes mellitus with hyperglycemia; E11.628 Type 2 diabetes mellitus with other skin complications; D72.829 Elevated white blood cell count, unspecified; Z79.84 Long term (current) use of oral hypoglycemic drugs; I10 Essential (primary) hypertension
CPT/HCPCS: 36415; 71045; 80048; 80053; 80061; 80202; 82948; 83036; 84439; 84443; 85025; 85610; 85730; 86140; 87040; 87071; 87075; 87186; 87205; 93005; 93925; 96367; 96372; 99283; C1713; J2001; J2185; J2270; J2405; J3370; J7050

== ENCOUNTER → 2017-08-09 | Day surgery (SDC) | payer OTHER ==
[2017-08-05 13:29] LABS: ANION GAP 17.8 mmol/L (8-16); BLOOD UREA NITROGEN 17 mg/dL (7-26); BUN/CREATININE RATIO 19 (6-25); CALCIUM 9.9 mg/dL (8.4-10.2); CARBON DIOXIDE 28 mmol/L (22-29); CHLORIDE 96 mmol/L (98-107); EST GLOMERULAR FILTRATION RATE > 60 ML/MIN (60-); GLUCOSE 70 mg/dL (74-118); POTASSIUM 3.8 mmol/L (3.5-5.1); SODIUM 138 mmol/L (136-145)
[~2017-08-09] MED LIST: BACITRACIN 50,000 UNIT VIAL ONE; BUPIVACAINE HCL 0.5% INJ 30 ML VIAL INJ ONE; DOCUSATE SODIU100 MG PO; FARXIGA; FENTANYL CITRATE/PF 100MCG/2 ML INJ ONE; LABETALOL HCL 20 ML ONE; LIDOCAINE HCL 2% LOCAL INJ 5 ML SDV VIAL INJ ONE; LOVASTATIN20 MG PO; METFORMIN HCL500 MG PO; MIDAZOLAM HCL 2 MG/2 ML VIAL ONE; MUPIROCIN 2% OINT 22 GM TUBE ONE; OMEPRAZOLE40 MG; ONDANSETRON HCL INJ 2 MG/ML VIAL ONE; PIOGLITAZONE HC45 MG PO; PROPOFOL IV EMULSION 10 MG/ML 20 ML VIAL ONE; SEVOFLURANE INHAL SOLN 250 ML PEN BTL ONE; VASOTEC5 MG PO
--- OUTSIDE RECORDS SUMMARY | 2017-08-09 07:09 | XMS REPORT | Continuity of Care Document ---
Author Author [facility] Organization [facility] Address [address] [place] [address] Phone Unavailable Care Team Providers Care Mechanical Product Engineer Name Role Phone KIYA CHRISTINA MD PCP Insurance Providers Guarantor Colleen Pereira Address [address] [place] [address] Email PT DECLINED [facility] Policy Number [id number] Subscriber's Name Colleen Pereira Relationship 18 Self / Same As Patient Group Number [id number] Group Name [employer]. Effective Date 16 Advance Directives Directive Response Recorded Date/Time Does the patient have an advance directive? No 07/26/17 6:06pm If yes, is advance directive on file with [facility]? No 07/26/17 6:06pm If not on file with [facility] will patient provide a copy? No 07/26/17 6:06pm Do you have a Directive to Physician? No 07/26/17 12:12pm Do you have a Medical Power of Circulation Worker? No 07/26/17 12:12pm Do you have an out of hospital Do Not Resuscitate Order? No 07/26/17 12:12pm Do you have any special needs we should be aware of? No 07/26/17 12:12pm Do you have a support person here with you today? Yes 07/26/17 12:12pm Did patient receive Notice of Privacy Practices? Yes 07/26/17 12:12pm Did patient receive patient rights and responsibilities? Yes 07/26/17 12:12pm Problems Medical Problem Onset Date Status Cellulitis of right lower leg Unknown Uncontrolled diabetes mellitus Unknown Medications Current Home Medications Medication Dose Units Route Directions Days Qty Instructions Start Date Docusate Sodium 100 Mg Capsule 100 Mg Oral Daily Enalapril Maleate (Vasotec) 5 Mg Tab 5 Mg Oral Daily 30 Tab Farxiga 10 Mg Daily Lovastatin 20 Mg Tablet Daily Metformin Hcl 500 Mg Tablet 500 Mg Oral Three Times A Day 60 Tab Omeprazole 40 Mg Capsule.dr Daily Pioglitazone Hcl 45 Mg Tablet 45 Mg Oral Daily 30 Tab Social History Social History Problem Response Recorded Date/Time Onset Date Status Hx Psychiatric Problems No 07/26/2017 6:06pm Not Applicable Not Applicable Hx Eating Disorder No 07/26/2017 6:06pm Not Applicable Not Applicable Hx Substance Use Disorder No 07/26/2017 6:06pm Not Applicable Not Applicable Hx Depression No 07/26/2017 6:06pm Not Applicable Not Applicable Hx Alcohol Use No 07/26/2017 6:06pm Not Applicable Not Applicable Hx Substance Use Treatment No 07/26/2017 6:06pm Not Applicable Not Applicable Hx Physical Abuse No 07/26/2017 6:06pm Not Applicable Not Applicable Smoking Status Start Date Stop Date Never Smoker Hospital Discharge Instructions No hospital discharge instruction information available. Plan of Care Discharge Date 08/03/17 4:46pm Disposition HOME, SELF-CARE Instructions/Education Provided Diabetes and Diet Diabetic Neuropathy Post Operative Pain Prescriptions See Medication Section Additional Instructions/Education diet as tolerated follow up with your PCP follow up with Dr. Cortes tuesday08/05/17 for dressing and wound care. return to ER if any temperature, or swelling. Functional Status Query Response Date Recorded Assistive Devices None July 26, 2017 6:25pm Ambulation Ability Independent July 26, 2017 6:25pm Toileting Ability Independent August 03, 2017 9:00am Allergies, Adverse Reactions, Alerts Allergen Type Severity Reaction Status Last Updated Penicillin Allergy Mild PARALYSIS Active 07/26/17 Immunizations No immunization information available. Vital Signs Acute Vital Signs Vital Response Date/Time Temperature (Fahrenheit) 95.7 degrees F (97.6 - 99.5) 08/03/2017 4:13pm Pulse Pulse Rate (adult) 96 bpm (60 - 90) 08/03/2017 4:13pm Respiratory Rate 18 bpm (12 - 24) 08/03/2017 4:13pm Blood Pressure 121/71 mm Hg 08/03/2017 4:13pm Height 5 ft 5 in 07/26/2017 11:34am Weight 190 lb 07/26/2017 11:34am Body Mass Index 31.6 kg/m^2 08/03/2017 12:00am Results Laboratory Results Test Name Result Units Flags Reference Collection Date/Time Result Date/ Time Comments White Blood Count 10.54 x10e3/uL 4.8-10.8 07/30/2017 7:50am 07/30/2017 8:41am Red Blood Count 4.21 x10e6/uL L 4.3-5.7 07/30/2017 7:50am 07/30/2017 8: 41am Hemoglobin 12.3 g/dL L 14.0-18.0 07/30/2017 7:50am 07/30/2017 8:41am Hematocrit 36.7 % L 38.2-49.6 07/30/2017 7:50am 07/30/2017 8:41am Mean Corpuscular Volume 87.2 fL 81-99 07/30/2017 7:50am 07/30/2017 8: 41am Mean Corpuscular Hemoglobin 29.2 pg 28-32 07/30/2017 7:50am 07/30/2017 8:41am Mean Corpuscular Hemoglobin Concent 33.5 g/dL 31-35 07/30/2017 7:50am 07/30/2017 8:41am Red Cell Distribution Width 11.7 % 11.7-14.4 07/30/2017 7:50am 2017 8:41am Platelet Count 242 x10e3/uL 140-360 07/30/2017 7:50am 07/30/2017 8: 41am Neutrophils (%) (Auto) 72.8 % 38.7-80.0 07/30/2017 7:50am 07/30/2017 8: 41am Lymphocytes (%) (Auto) 18.2 % 18.0-39.1 07/30/2017 7:50am 07/30/2017 8: 41am Monocytes (%) (Auto) 6.6 % 4.4-11.3 07/30/2017 7:50am 07/30/2017 8: 41am Eosinophils (%) (Auto) 1.2 % 0.0-6.0 07/30/2017 7:50am 07/30/2017 8: 41am Basophils (%) (Auto) 0.6 % 0.0-1.0 07/30/2017 7:50am 07/30/2017 8:41am IM GRANULOCYTES % 0.6 % 0.0-1.0 07/30/2017 7:50am 07/30/2017 8:41am Neutrophils # (Auto) 7.7 H 2.1-6.9 07/30/2017 7:50am 07/30/2017 8: 41am Lymphocytes # (Auto) 1.9 1.0-3.2 07/30/2017 7:50am 07/30/2017 8:41am Monocytes # (Auto) 0.7 0.2-0.8 07/30/2017 7:50am 07/30/2017 8:41am Eosinophils # (Auto) 0.1 0.0-0.4 07/30/2017 7:50am 07/30/2017 8:41am Basophils # (Auto) 0.1 0.0-0.1 07/30/2017 7:50am 07/30/2017 8:41am Absolute Immature Granulocyte (auto 0.06 x10e3/uL 0-0.1 07/30/2017 7: 50am 07/30/2017 8:41am Prothrombin Time 13.4 seconds 11.9-14.5 07/26/2017 12:10pm 07/26/2017 12:45pm Prothromb Time International Ratio 1.10 07/26/2017 12:10pm 2017 12:45pm Oral Anticoagulant Therapy INR Values: 1. Low Intensity Therapy 1.5 - 2.0 2. Moderate Intensity Therapy 2.0 - 3.0 3. High Intensity Therapy(1) 2.5 - 3.5 4. High Intensity Therapy(2) 3.0 - 4.0 5. Panic Value INR > 5.0 Activated Partial Thromboplast Time 30.5 seconds 23.8-35.5 07/26/2017 12 :10pm 07/26/2017 12:45pm Sodium Level 134 mmol/L L 136-145 07/30/2017 7:50am 07/30/2017 8:51am Potassium Level 3.8 mmol/L 3.5-5.1 07/30/2017 7:50am 07/30/2017 8:51am Chloride Level 100 mmol/L 98-107 07/30/2017 7:50am 07/30/2017 8:51am Carbon Dioxide Level 23 mmol/L 22-29 07/30/2017 7:50am 07/30/2017 8: 51am Anion Gap 14.8 mmol/L 8-16 07/30/2017 7:50am 07/30/2017 8:51am Blood Urea Nitrogen 12 mg/dL 7-26 07/30/2017 7:50am 07/30/2017 8:51am Creatinine 0.77 mg/dL 0.72-1.25 07/30/2017 7:50am 07/30/2017 8:51am BUN/Creatinine Ratio 16 6-25 07/30/2017 7:50am 07/30/2017 8:51am Estimat Glomerular Filtration Rate > 60 ML/MIN 60- 07/30/2017 7:50am 8:51am Ranges were taken from the National Kidney Disease Education Program and the National Kid[employer] Foundation literature. Reference ranges: 60 or greater: Normal 16-59 (for 3 consecutive months): Chronic kidney disease 15 or less: Kidney failure Glucose Level 221 mg/dL H 74-118 07/30/2017 7:50am 07/30/2017 8:51am Calcium Level 9.0 mg/dL 8.4-10.2 07/30/2017 7:50am 07/30/2017 8:51am Bedside Glucose 70 mg/dL 70-120 08/03/2017 3:39pm 08/03/2017 4:03pm Meter ID: [id number] Hemoglobin A1c Percent 11.9 % H 4.0-7.0 07/31/2017 4:21pm 07/31/2017 4: 45pm Total Bilirubin 0.6 mg/dL 0.2-1.2 07/26/2017 12:10pm 07/26/2017 12: 51pm Aspartate Amino Transf (AST/SGOT) 20 IU/L 5-34 07/26/2017 12:10pm 07/26 12:51pm Alanine Aminotransferase (ALT/SGPT) 22 IU/L 0-55 07/26/2017 12:10pm 10/2017 12:51pm Total Protein 8.4 g/dL H 6.5-8.1 07/26/2017 12:10pm 07/26/2017 12:51pm Albumin 3.7 g/dL 3.5-5.0 07/26/2017 12:10pm 07/26/2017 12:51pm Globulin 4.7 g/dL H 2.3-3.5 07/26/2017 12:10pm 07/26/2017 12:51pm Albumin/Globulin Ratio 0.8 0.8-2.0 07/26/2017 12:10pm 07/26/2017 12: 51pm Alkaline Phosphatase 108 IU/L 40-150 07/26/2017 12:10pm 07/26/2017 12: 51pm Triglycerides Level 84 MG/DL 0-149 07/26/2017 12:10pm 07/26/2017 1: 23pm Cholesterol Level 172 MD/DL 0-199 07/26/2017 12:10pm 07/26/2017 1:23pm Less than 200 mg/dL Low Risk 201 - 239 mg/dL Borderline Risk 240 mg/dl and greater High Risk LDL Cholesterol 94 MG/DL 60-130 07/26/2017 12:10pm 07/26/2017 1:23pm HDL Cholesterol 61 MG/DL H 40-60 07/26/2017 12:10pm 07/26/2017 1:23pm Cholesterol/HDL Ratio 2.8 L 3.9-4.7 07/26/2017 12:10pm 07/26/2017 1: 23pm Free Thyroxine 1.21 ng/dL 0.9-1.8 07/27/2017 6:27am 07/27/2017 2:19pm Thyroid Stimulating Hormone (TSH) 1.202 uIU/mL 0.350-4.940 07/27/2017 6: 27am 07/27/2017 2:19pm Random Vancomycin Level 8.6 ug/mL 08/02/2017 1:48pm 08/02/2017 2: 25pm Vancomycin Level Trough 12.9 ug/mL *H 5.0-10.0 08/01/2017 6:37am 2017 7:37am Results called to NELY Lovett RN at 0734 on 08/01/17 by Edin Corbin. RB OK. C-Reactive Protein 70.2 mg/L H 0.0-4.9 07/31/2017 4:21pm 08/02/2017 9: 06am Performed at: - [address] [id number] Team Truck Driver: Peter Lawton MD, Phone: [phone] Microbiology Results Procedure Source Organism/Result Collection Date/Time Result Date/Time Result Status Blood Culture Blood NO GROWTH AFTER 5 DAYS, FINAL REPORT 07/26/2017 12: 10pm 07/31/2017 12:21pm Final Procedures Procedure Status Date Provider(s) Excision of neuroma Completed 08/02/17 MARCELO SALGADO DPM MRI lower extremity w/o dye Active 07/29/17 LAY JUÁREZ DPTaran Encounters Encounter Location Arrival/Admit Date Discharge/Depart Date Attending Provider Discharged Inpatient [facility] 07/26/17 2:42pm 08/03/17 4:46pm TOD ALCOCER MD
--- NOTE | 2017-08-09 11:57 | Diagnostic Imaging Report ---
PROCEDURE: A single AP view of the chest. COMPARISON: Patients [facility], DX, CHEST XRAY LINE PLACEMENT, 07/27/2017, 10:15. INDICATIONS: PICC LINE PLACEMENT IMPRESSION: 1. right-sided PICC line has distal tip projecting in the distal right atrium. Recommend retraction of approximately 5-6 cm. 2. Otherwise, no interval change. Beltran Mosqueda M.D. Dictated by: Beltran Mosqueda M.D. on 08/09/2017 at 11:57 Electronically approved by: Beltran Mosqueda M.D. on 08/09/2017 at 11:57
--- NOTE | 2017-08-09 14:22 | Operative Report ---
DATE OF PROCEDURE: August 09, 2017 WARP BLEACHING VAT TENDER: None. PREOPERATIVE DIAGNOSIS: Ulcer, grade 3, right foot. POSTOPERATIVE DIAGNOSIS: Ulcer, grade 3, right foot. PROCEDURE: Debridement down to bone with flap closure of the right foot. PATHOLOGY: None. ANESTHESIA: General anesthetic. HEMOSTASIS: None. ESTIMATED BLOOD LOSS: Less than 10 mL. MATERIALS: 100 mL of human allograft was packed into the deficit. COMPLICATIONS: None. CONDITION: Stable. PROCEDURE IN DETAIL: Under mild sedation, the patient was brought to the operating room and placed on the operating table in the supine position. Following IV sedation, anesthesia was obtained with a general anesthetic. At this point, the right foot was scrubbed, prepped and draped in the usual aseptic manner. It was then lowered to the table. Attention was then directed to the dorsal aspect of the right foot, where, utilizing a combination of small rongeur and #15 blade, the nonviable tissue was removed. The wound was cleaned down to clean, viable, bleeding tissue. Once the wound was cleaned, a full-thickness flap closure was then made in order to rotate and close the deficit. The void was then filled with 1,000 mL of human allograft. After the void was filled, the flap was rotated. The flap was then closed, closing with 4-0 Vicryl and then 4-0 nylon. At this point, a clean dressing was applied consisting of Adaptic, 4 x 4's, Kerlix, and Webril. A posterior splint was applied and was secured using an Kevin bandage. The patient tolerated the procedure and the anesthesia well without complications. He was transported to the recovery room with vital signs stable and intact to both feet. The patient will be discharged home when he meets criteria. They were given instructions to be strictly nonweightbearing, to elevate the foot, to follow up with me in the office, and to call the office if any questions, concerns or any problems arise. Job#: [id number]
--- NOTE | 2017-08-09 14:30 | Diagnostic Imaging Report ---
PROCEDURE: A single AP view of the chest. COMPARISON: Portable chest 07/27/2017. INDICATIONS: PICC LINE EVALUATION FINDINGS: Lines/tubes: Right peripherally inserted central venous catheter with tip projecting over the expected region of the superior vena cava. Lungs: The lungs are well inflated and clear. There is no evidence of pneumonia or pulmonary edema. Pleura: There is no pleural effusion or pneumothorax. Heart and mediastinum: The heart and the mediastinum are unremarkable. Bones: No acute bony abnormality. Degenerative changes of the thoracic spine. IMPRESSION: No acute radiographic abnormality. Dictated by: Dwight Wallace M.D. on 08/09/2017 at 14:30 Electronically approved by: Dwight Wallace M.D. on 08/09/2017 at 14:30
== END | disposition home or self-care (01) ==
LOC: OR 07:06
PROVIDERS: ATTEND Podiatrist Foot & Ankle Surgery
DX: L97.519 Non-pressure chronic ulcer of other part of right foot with unspecified severity (principal); M86.9 Osteomyelitis, unspecified; I10 Essential (primary) hypertension; E11.9 Type 2 diabetes mellitus without complications; Z01.812 Encounter for preprocedural laboratory examination
CPT/HCPCS: 11044; 14040; 36415 ×2; 71045; 80048; 82948; J2001; J2250; J2405; J3490